=== PATIENT | male | born 1995 | race Caucasian/White ===

== ENCOUNTER 2019-01-10 21:27 | Emergency (ER) | payer BC, OTHER ==
--- NOTE | 2019-01-10 21:54 | EDPHY ---
H & P Stated Complaint: photosensitivity, n/v, recently seen by , vertigo, dizziness Time Seen by Provider: 01/10/19 21:54 HPI/ROS: HPI CHIEF COMPLAINT: Vomiting, Dizziness, Right Neck Pain. HISTORY OF PRESENT ILLNESS: This is a 23-year-old male, he arrives to the emergency room by ambulance for vomiting and dizziness. The patient reports that he went out to dinner tonight, and he cracked his neck. He states that he manipulated his neck and developed right-sided neck pain and onset of dizziness. Patient states that he often cracked his neck, this is a regular thing for him and he has chronic right neck pain. He states he felt very dizzy , room spinning sensation, nausea and vomited multiple times. Denies chest pain or shortness of breath. States that he went to go lay down and continued vomiting. His roommates became concerned called 911. However he reports to me did not want come to the hospital. Of note patient went out to dinner tonight he did have multiple alcoholic beverages, also smoked marijuana. Patient also complains of light sensitivity. Frontal headache. Past Medical History: History of chronic right neck pain, history of chronic right arm numbness and tingling. Past Surgical History: Denies recent surgery. Social History: Alcohol, marijuana. Family History: Noncontributory ROS REVIEW OF SYSTEMS: 10 Systems were reviewed and negative with the exception of the elements mentioned in the history of present illness. Exam Constitutional triage nursing summary reviewed, vital signs reviewed, awake/ alert. Eyes normal conjunctivae and sclera, EOMI, PERRLA. HENT normal inspection, atraumatic, moist mucus membranes, no epistaxis, neck supple/ no meningismus, no raccoon eyes. Respiratory clear to auscultation bilaterally, normal breath sounds, no respiratory distress, no wheezing. Cardiovascular rate normal, regular rhythm, no murmur, no edema, distal pulses normal. Gastrointestinal soft, non-tender, no rebound, no guarding, normal bowel sounds, no distension, no pulsatile mass. Genitourinary no CVA tenderness. Musculoskeletal no midline vertebral tenderness, full range of motion, no calf swelling, no tenderness of extremities, no meningismus, good pulses, neurovascularly intact. Skin pink, warm, & dry, no rash, skin atraumatic. Neurologic awake, alert and oriented x 3, AAOx3, moves all 4 extremities equally, motor intact, sensory intact, CN II-XII intact, normal cerebellar, normal vision, normal speech. Psychiatric normal mood/affect. Heme/Lymph/Immune no lymphadenopathy. Differential Diagnosis: Includes but is not limited to in a particular order dehydration, electrolyte disturbance, vertebral artery dissection, migraine headache, tension headache, chronic neck pain, vertigo, Meniere's disease Medical Decision Making: Plan for this patient IV establishment IV fluid bolus , basic labs, EKG, troponin, CT angiogram head and neck, re-evaluate. Re-evaluation: EKG interpretation by me on record in [facility] system. Impression time of EK, sinus rhythm rate of 78, without any signs of acute ischemia no ST elevation or ST depression no prolonged intervals no signs of cardiac arrhythmia. Trop 0.00 CT scan head without contrast negative for acute abnormality called to me by Dr. Cook. CT angiogram head and neck with IV contrast negative for acute artery dissection or thrombus. Called to me by Dr. Cook 0132: Patient re-evaluated this time resting comfortably in no acute distress. He was able to ambulate well to the bathroom any further dizziness. He denies any headache or neck pain at this time he denies feeling nauseous. States he feels much better. He is requesting discharge home. Here in emergency room he presented with headache, right neck pain after cracking his neck, dizziness, nausea and vomiting. He has improved greatly. He had negative CT scan head and angiogram head and neck. His neurological Exam is unremarkable. The patient would like to go home. Patient is unremarkable EKG. Negative troponin. Labs reassuring I discussed return precautions he understands return emergency room if develops worsening dizziness, vomiting, not doing well. Is cranial nerves are intact, no focal neuro deficit. No further and dizziness. Unclear exactly what caused his dizziness tonight however recurrent symptoms return emergency room he understands and is comfortable this plan. 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 surgery tonsillectomy, wisdom teeth extraction, - Social History Smoking Status: Current every day smoker Constitutional: Initial Vital Signs Temperature (C) 36.7 C 01/10/19 21:30 Heart Rate 90 01/10/19 21:30 Respiratory Rate 18 01/10/19 21:30 Blood Pressure 158/98 H 01/10/19 21:30 O2 Sat (%) 98 01/10/19 21:30 O2 Delivery Mode Room Air O2 (L/minute) 2 Allergies/Adverse Reactions: No Known Allergies Allergy (Unverified 01/10/19 21:31) Home Medications: Medication Instructions Recorded Cephalexin [Keflex] 500 mg PO QID #28 cap 03/01/14 Medical Decision Making - Diagnostics Imaging Results: Imaging Impressions Head CTA 01/10/19 22:04 Impression: 1. No acute findings. 2. Atrophic right parotid gland. 3. Additional findings as above. Stenoses are calculated using [place] Symptomatic Carotid Endarterectomy Trial (NASCET) criteria. Findings discussed with Uriel Riddle MD 01/10/2019 at 23:01. Neck CTA 01/10/19 22:04 Impression: 1. No acute findings. 2. Atrophic right parotid gland. 3. Additional findings as above. Stenoses are calculated using [place] Symptomatic Carotid Endarterectomy Trial (NASCET) criteria. Findings discussed with Uriel Riddle MD 01/10/2019 at 23:01. Chest X-Ray 01/10/19 22:05 Impression: No acute findings in the chest. Head CT 01/10/19 22:31 Impression: No acute intracranial findings. Findings discussed with Uriel Riddle MD 01/10/2019 at 23:01. - Data Points Laboratory Results: Laboratory Results 01/10/19 21:20 01/10/19 21:20 01/10/19 01/10/19 01/10/19 22:20 21:20 21:20 WBC 12.81 10^3/uL H 10^3/uL (3.80-9.50) RBC 4.99 10^6/uL 10^6/uL (4.40-6.38) Hgb 16.3 g/dL g/dL (13.7-17.5) Hct 45.7 % % (40.0-51.0) MCV 91.6 fL fL (81.5-99.8) MCH 32.7 pg pg (27.9-34.1) MCHC 35.7 g/dL g/dL (32.4-36.7) RDW 12.0 % % (11.5-15.2) Plt Count 316 10^3/uL 10^3/uL (150-400) MPV 10.0 fL fL (8.7-11.7) Neut % (Auto) 45.4 % % (39.3-74.2) Lymph % (Auto) 40.7 % % (15.0-45.0) [place] % (Auto) 8.7 % % (4.5-13.0) Eos % (Auto) 4.1 % % (0.6-7.6) Baso % (Auto) 0.8 % % (0.3-1.7) Nucleat RBC Rel Count 0.0 % % (0.0-0.2) Absolute Neuts (auto) 5.80 10^3/uL 10^3/uL (1.70-6.50) Absolute Lymphs (auto) 5.22 10^3/uL H 10^3/uL (1.00-3.00) Absolute Monos (auto) 1.12 10^3/uL H 10^3/uL (0.30-0.80) Absolute Eos (auto) 0.53 10^3/uL H 10^3/uL (0.03-0.40) Absolute Basos (auto) 0.10 10^3/uL 10^3/uL (0.02-0.10) Absolute Nucleated RBC 0.00 10^3/uL 10^3/uL (0-0.01) Immature Gran % 0.3 % % (0.0-1.1) Seg Neutrophils % Cancelled Band Neutrophils % Cancelled Lymphocytes % Cancelled Monocytes % Cancelled Eosinophils % Cancelled Basophils % Cancelled Metamyelocytes % Cancelled Myelocytes % Cancelled Promyelocytes % Cancelled Blast Cells % Cancelled Megakaryocytes % Cancelled Immature Gran # 0.04 10^3/uL 10^3/uL (0.00-0.10) Absolute Seg Neuts Cancelled Absolute Band Neuts Cancelled Absolute Lymphocytes Cancelled Absolute Monocytes Cancelled Absolute Eosinophils Cancelled Absolute Basophils Cancelled Absolute Metamyelocyte Cancelled Absolute Myelocytes Cancelled Absolute Promyelocytes Cancelled Absolute Plasma Cells Cancelled Nucleated RBCs Cancelled Differential Comment Cancelled RBC/WBC/PLT Morphology Cancelled Hypersegmented Neuts Cancelled Atypical Lymphocytes Cancelled Absolute Blast Cells Cancelled Plasma Cells % Cancelled Smudge Cells Cancelled Toxic Granulation Cancelled Toxic Vacuolation Cancelled Dohle Bodies Cancelled Nicci Rods Cancelled Platelet Estimate Cancelled Clumped Platelets Cancelled Large Platelets Cancelled Giant Platelets Cancelled Bizarre Platelets Cancelled Polychromasia Cancelled Hypochromasia Cancelled Basophilic Stippling Cancelled Microcytic Cells Cancelled Spherocytes Cancelled Pappenheimer Bodies Cancelled Sickle Cells Cancelled Target Cells Cancelled Tear Drop Cells Cancelled Oval Macrocytes Cancelled Stomatocytes Cancelled [place] Bodies Cancelled Echinocytes Cancelled Elliptocytes Cancelled Acanthocytes (Spur) Cancelled Rouleaux Cancelled Keratocytes Cancelled Schistocytes Cancelled Sodium 140 mEq/L mEq/L (135-145) Potassium 3.7 mEq/L mEq/L (3.5-5.2) Chloride 102 mEq/L mEq/L (97-110) Carbon Dioxide 18 mEq/l L mEq/l (22-31) Anion Gap 20 mEq/L H mEq/L (6-14) BUN 11 mg/dL mg/dL (7-23) Creatinine 1.0 mg/dL mg/dL (0.7-1.3) Estimated GFR > 60 Glucose 80 mg/dL mg/dL (70-100) Calcium 9.6 mg/dL mg/dL (8.5-10.4) Magnesium 2.0 mg/dL mg/dL (1.6-2.3) Total Bilirubin 0.5 mg/dL mg/dL (0.1-1.4) Conjugated Bilirubin 0.3 mg/dL mg/dL (0.0-0.5) Unconjugated Bilirubin 0.2 mg/dL mg/dL (0.0-1.1) AST 44 IU/L IU/L (17-59) ALT 25 IU/L IU/L (21-72) Alkaline Phosphatase 77 IU/L IU/L (38-126) POC Troponin I 0.00 ng/mL ng/mL (0.00-0.08) Total Protein 7.7 g/dL g/dL (6.3-8.2) Albumin 5.1 g/dL H g/dL (3.5-5.0) Cold Agglutinins Cancelled Medications Given: Discontinued Medications Sodium Chloride (Ns) 1,000 mls @ 0 mls/hr IV EDNOW ONE; Wide Open PRN Reason: Protocol Stop: 01/10/19 22:06 Last Admin: 01/10/19 22:12 Dose: 1,000 mls Sodium Chloride (Ns) 1,000 mls @ 0 mls/hr IV ONCE ONE PRN Reason: Wide Open Stop: 01/10/19 22:06 Last Admin: 01/10/19 22:16 Dose: 1,000 mls Ketorolac Tromethamine (Toradol) 15 mg IVP EDNOW ONE Stop: 01/10/19 22:07 Last Admin: 01/10/19 22:12 Dose: 15 mg Promethazine HCl (Phenergan) 6.25 mg IVP ONCE ONE Stop: 01/10/19 22:07 Last Admin: 01/10/19 22:16 Dose: 6.25 mg Point of Care Test Results: Chemistry 01/10/19 22:20 POC Troponin I 0.00 ng/mL ng/mL (0.00-0.08) Departure - Departure Disposition: Home, Routine, Self-Care Clinical Impression: Dizziness Condition: Good Instructions: Vertigo (ED), Dizziness (ED), Lightheadedness (ED) Additional Instructions: 1. Rest and stay well-hydrated. 2. Drink lots of fluids. 3. Return to the emergency room if worsening symptoms questions or concerns. Referrals: Patient,NotPresent [Unknown] - As per Instructions [facility],. [Clinic] - As per Instructions
[2019-01-10] MEDS ORDERED: NS 1,000 ML IV ONE ×2 (22:05)
[2019-01-10] MEDS ORDERED: KETOROLAC 15 MG/1 ML SDV IVP ONE (22:06)
[2019-01-10] MEDS ORDERED: PROMETHAZINE HCL 25 MG/ML INJ IVP ONE (22:06)
[2019-01-10 22:11] LABS: PLATELET COUNT 316 10^3/uL (150-400)
[2019-01-10] MEDS ORDERED: IOPAMIDOL (ISOVUE 370) 100 ML BTL IV ONE (22:20)
[2019-01-11 01:51] VITALS: BP 110/72
--- NOTE | 2019-01-20 06:32 | CPEKG ---
Test Reason : OPEN Blood Pressure : / mmHG Vent. Rate : 078 BPM Atrial Rate : 080 BPM P-R Int : 128 ms QRS Dur : 103 ms QT Int : 405 ms P-R-T Axes : 053 091 051 degrees QTc Int : 462 ms Sinus rhythm Borderline right axis deviation Confirmed by Uriel Riddle ([id number]) on 01/20/2019 6:31:15 AM Referred By: Uriel Riddle Confirmed By:Uriel Riddle
== END 2019-01-11 01:37 | disposition home or self-care (01) ==
LOC: EDUNIT#
DX: R42 Dizziness and giddiness (principal); R11.10 Vomiting, unspecified; M54.2 Cervicalgia; E86.9 Volume depletion, unspecified
CPT/HCPCS: 84484-ER; 96374; J1885; J2550; Q9967